=== PATIENT | female | born 1960 | race Caucasian/White ===

== ENCOUNTER 2017-08-30 10:53 | Emergency (ER) | payer SELFPAY ==
--- NOTE | 2017-08-30 11:08 | ER Report ---
History and Physical Time Seen By : 11:08 HPI/ROS CHIEF COMPLAINT: Abdominal pain, bright red blood per rectum HISTORY OF PRESENT ILLNESS: 57-year-old female patient presents to emergency room with complaint of abdominal pain, right red blood per rectum. Patient states she is up visiting from the [facility]. She states that she was camping. She woke up in the middle the night last night with some cramping. States she did get up and go the bathroom. She states that he was normal. She states that she laid back down and had the urge to go the bathroom again. When she went this time she had some diarrhea. She laid back down again and got up several more times since then. States that each time she was having blood in her stool. States the blood was bright red. Patient states she has a generalized abdominal pain, although he seems to worsen the right lower quadrant. She states that she has had no fevers, however she was chilled during the night. REVIEW OF SYSTEMS: Respiratory: No cough, no dyspnea. Cardiovascular: No chest pain, no palpitations. Gastrointestinal: As noted above Musculoskeletal: Mild back pain after hiking. Allergies: Coded Allergies: No Known Drug Allergies (Unverified , 08/30/17) Home Meds Active Scripts Hydrocodone Bit/Acetaminophen (HYDROCODON-ACETAMINOPHEN 5-325) 1 Each Tablet, 1 EACH PO Q6-8H Y for PAIN, #8 TAB Prov:RAZA OBRIEN [facility] 08/30/17 Metronidazole (FLAGYL) 500 Mg Tablet, 500 MG PO TID, #30 TAB Prov:RAZA OBRIEN [facility] 08/30/17 Ciprofloxacin Hcl (CIPROFLOXACIN HCL) 250 Mg Tablet, 250 MG PO DAILY, #14 TAB Prov:RAZA OBRIEN [facility] 08/30/17 Reported Medications Metformin Hcl (METFORMIN HCL) 500 Mg Tablet, 1 TAB PO QHS, TAB 08/30/17 Metformin Hcl (METFORMIN HCL) 1,000 Mg Tablet, 1 TAB PO QAM, TAB 08/30/17 Insulin Glargine (LANTUS) 100 Unit/Ml Soln, 37 UNIT SUBQ QHS, ML 08/30/17 Past Medical/Surgical History Patient has a past medical history of diabetes. Patient denies any pertinent surgical history. Reviewed Nurses Notes: Yes Constitutional Vital Sign - Last 24 Hours 08/30/17 08/30/17 08/30/1718 11:07 11:08 11:30 11:45 Temp 98.5 Pulse 94 Resp 18 B/P (MAP) 170/94 170/94 (119) 167/91 (116) 173/88 (116) Pulse Ox 93 96 O2 Delivery Room Air 08/30/17 08/30/17 08/30/17 08/30/17 12:15 12:30 12:45 12:50 Pulse 85 88 B/P (MAP) 148/72 (97) 139/71 (93) 136/73 (94) Pulse Ox 91 96 08/30/17 08/30/17 08/30/17 13:19 13:20 13:30 Pulse 82 B/P (MAP) 154/81 (105) 153/80 (104) Pulse Ox 95 Intake and Output 08/30/17 08/30/17 08/31/17 15:00 23:00 07:00 Intake Total 1000 ml Balance 1000 ml Physical Exam General Appearance: The patient is alert, has no immediate need for airway protection and no current signs of toxicity. ENT: Tympanic membranes are pearly-tyler, auditory canals are patent, mucous membranes are moist. Respiratory: Chest is non tender, lungs are clear to auscultation. Cardiac: regular rate and rhythm Gastrointestinal: Abdomen is soft and diffusely tender, no masses, bowel sounds are hyperactive. Musculoskeletal: Neck: Neck is supple and non tender. Extremities have full range of motion and are non tender. Skin: No rashes or lesions. DIFFERENTIAL DIAGNOSIS: After history and physical exam differential diagnosis was considered for abdominal pain including but not limited to appendicitis, cholecystitis, gastritis and urinary tract infection. Medical Decision Making Data Points Result Diagram: 08/30/17 1118 08/30/17 1118 Laboratory Hematology Test 08/30/17 11:18 08/30/17 13:17 Red Blood Count 4.21 M/uL (4.17-5.56) Mean Corpuscular Volume 93.1 fL (80.0-96.0) Mean Corpuscular Hemoglobin 31.9 pg (26.0-33.0) Mean Corpuscular Hemoglobin Concent 34.3 g/dL (32.0-36.0) Red Cell Distribution Width 13.7 % (11.5-14.5) Mean Platelet Volume 8.3 fL (7.2-11.1) Neutrophils (%) (Auto) 91.8 % (39.4-72.5) Lymphocytes (%) (Auto) 3.7 % (17.6-49.6) Monocytes (%) (Auto) 4.2 % (4.1-12.4) Eosinophils (%) (Auto) 0.1 % (0.4-6.7) Basophils (%) (Auto) 0.2 % (0.3-1.4) Nucleated RBC Relative Count (auto) 0.0 /100WBC Neutrophils # (Auto) 10.7 K/uL (2.0-7.4) Lymphocytes # (Auto) 0.4 K/uL (1.3-3.6) Monocytes # (Auto) 0.5 K/uL (0.3-1.0) Eosinophils # (Auto) 0.0 K/uL (0.0-0.5) Basophils # (Auto) 0.0 K/uL (0.0-0.1) Nucleated RBC Absolute Count (auto) 0.00 K/uL Sodium Level 136 mmol/L (137-145) Potassium Level 5.8 mmol/L (3.5-5.0) Chloride Level 106 mmol/L (98-107) Carbon Dioxide Level 17 mmol/L (22-31) Blood Urea Nitrogen 40 mg/dl (7-18) Creatinine 1.90 mg/dl (0.52-1.04) Glomerular Filtration Rate Calc 27.2 Random Glucose 268 mg/dl (75-110) Calcium Level 8.9 mg/dl (8.4-10.2) Total Bilirubin 0.6 mg/dl (0.2-1.3) Aspartate Amino Transf (AST/SGOT) 21 U/L (0-35) Alanine Aminotransferase (ALT/SGPT) 21 U/L (0-56) Alkaline Phosphatase 90 U/L (0-126) C-Reactive Protein 1.0 mg/dl (<1.0) Total Protein 7.3 g/dl (6.3-8.2) Albumin 4.4 g/dl (3.5-5.0) Amylase Level 109 U/L (0-110) Lipase 177 U/L (23-300) Urine Color Straw Urine Clarity Clear Urine pH 5.0 pH (4.8-9.5) Urine Specific [place] 1.006 Urine Protein Negative mg/dL (NEGATIVE) Urine Glucose (UA) 150 mg/dL (NEGATIVE) Urine Ketones Negative mg/dL (NEGATIVE) Urine Blood Small (NEGATIVE) Urine Nitrite Negative (NEGATIVE) Urine Bilirubin Negative (NEGATIVE) Urine Urobilinogen Negative mg/dL (0.2-1.9) Urine Leukocyte Esterase Negative (NEGATIVE) Urine RBC None /HPF (0-2/HPF) Urine WBC 1 /HPF (0-5/HPF) Urine Squamous Epithelial Cells Many /LPF (</=FEW) Urine Bacteria Negative /HPF (NONE-FEW) Urine Hyaline Casts Few /LPF (NONE-FEW) Urine Mucus None /HPF (NONE-FEW) Chemistry Test 08/30/17 11:18 08/30/17 13:17 White Blood Count 11.7 k/uL (4.5-11.0) Red Blood Count 4.21 M/uL (4.17-5.56) Hemoglobin 13.4 g/dL (12.0-16.0) Hematocrit 39.2 % (34.0-47.0) Mean Corpuscular Volume 93.1 fL (80.0-96.0) Mean Corpuscular Hemoglobin 31.9 pg (26.0-33.0) Mean Corpuscular Hemoglobin Concent 34.3 g/dL (32.0-36.0) Red Cell Distribution Width 13.7 % (11.5-14.5) Platelet Count 199 K/uL (150-450) Mean Platelet Volume 8.3 fL (7.2-11.1) Neutrophils (%) (Auto) 91.8 % (39.4-72.5) Lymphocytes (%) (Auto) 3.7 % (17.6-49.6) Monocytes (%) (Auto) 4.2 % (4.1-12.4) Eosinophils (%) (Auto) 0.1 % (0.4-6.7) Basophils (%) (Auto) 0.2 % (0.3-1.4) Nucleated RBC Relative Count (auto) 0.0 /100WBC Neutrophils # (Auto) 10.7 K/uL (2.0-7.4) Lymphocytes # (Auto) 0.4 K/uL (1.3-3.6) Monocytes # (Auto) 0.5 K/uL (0.3-1.0) Eosinophils # (Auto) 0.0 K/uL (0.0-0.5) Basophils # (Auto) 0.0 K/uL (0.0-0.1) Nucleated RBC Absolute Count (auto) 0.00 K/uL Glomerular Filtration Rate Calc 27.2 Calcium Level 8.9 mg/dl (8.4-10.2) Total Bilirubin 0.6 mg/dl (0.2-1.3) Aspartate Amino Transf (AST/SGOT) 21 U/L (0-35) Alanine Aminotransferase (ALT/SGPT) 21 U/L (0-56) Alkaline Phosphatase 90 U/L (0-126) C-Reactive Protein 1.0 mg/dl (<1.0) Total Protein 7.3 g/dl (6.3-8.2) Albumin 4.4 g/dl (3.5-5.0) Amylase Level 109 U/L (0-110) Lipase 177 U/L (23-300) Urine Color Straw Urine Clarity Clear Urine pH 5.0 pH (4.8-9.5) Urine Specific [place] 1.006 Urine Protein Negative mg/dL (NEGATIVE) Urine Glucose (UA) 150 mg/dL (NEGATIVE) Urine Ketones Negative mg/dL (NEGATIVE) Urine Blood Small (NEGATIVE) Urine Nitrite Negative (NEGATIVE) Urine Bilirubin Negative (NEGATIVE) Urine Urobilinogen Negative mg/dL (0.2-1.9) Urine Leukocyte Esterase Negative (NEGATIVE) Urine RBC None /HPF (0-2/HPF) Urine WBC 1 /HPF (0-5/HPF) Urine Squamous Epithelial Cells Many /LPF (</=FEW) Urine Bacteria Negative /HPF (NONE-FEW) Urine Hyaline Casts Few /LPF (NONE-FEW) Urine Mucus None /HPF (NONE-FEW) Urinalysis Test 08/30/17 13:17 Urine Color Straw Urine Clarity Clear Urine pH 5.0 pH (4.8-9.5) Urine Specific [place] 1.006 Urine Protein Negative mg/dL (NEGATIVE) Urine Glucose (UA) 150 mg/dL (NEGATIVE) Urine Ketones Negative mg/dL (NEGATIVE) Urine Blood Small (NEGATIVE) Urine Nitrite Negative (NEGATIVE) Urine Bilirubin Negative (NEGATIVE) Urine Urobilinogen Negative mg/dL (0.2-1.9) Urine Leukocyte Esterase Negative (NEGATIVE) Urine RBC None /HPF (0-2/HPF) Urine WBC 1 /HPF (0-5/HPF) Urine Squamous Epithelial Cells Many /LPF (</=FEW) Urine Bacteria Negative /HPF (NONE-FEW) Urine Hyaline Casts Few /LPF (NONE-FEW) Urine Mucus None /HPF (NONE-FEW) EKG/Imaging Imaging EXAMINATION: CT Abdomen and Pelvis Without Contrast 08/30/2017 11:49 AM HISTORY: Abdominal pain TECHNIQUE: Spiral scan was through the abdomen and pelvis without contrast. One of the following dose optimization techniques was utilized in the performance of this exam: Automated exposure control; adjustment of the mA and/ or kV according to the patient's size; or use of an iterative reconstruction technique. Specific details can be referenced in the facility's radiology CT exam operational policy. COMPARISON STUDIES: none. FINDINGS: Liver / biliary: Gallstones in the gallbladder. No biliary dilatation or visible choledocholithiasis. Unenhanced liver is negative. Pancreas: negative Spleen: negative Adrenal glands: negative Kidneys / retroperitoneum: No kidney stone or obstruction. No perinephric stranding. Pelvic structures: Fundal uterine calcifications presumably are leiomyomatous. There are benign-appearing calcifications associated with nonenlarged ovaries on each side. No significant acute finding. Bowel / peritoneum / mesenteries: Thickening of the descending colon with hazing or inflammation in periserosal fat. No focal diverticular change. Appendix is normal. Vessels: Atherosclerosis. Musculoskeletal / Body wall: Degenerative changes in the spine. Sclerosis along both SI joints. Small bone island in the left ischio pubic area. Lymph node assessment: negative Lower chest: 5 mm less micronodules in both bases at least one of which in the right lower lobe appears to be cavitary (series 2, image 11) unless this is thickening along the margins of a dilated peripheral bronchiole. IMPRESSION: 1. Colitis of the descending colon. 2. Bibasilar pulmonary micronodules with a potentially cavitary component. These are nonspecific and may be chronic and postinflammatory although more active infectious or inflammatory processes would be possible. Metastatic disease cannot be excluded. Has the patient had previous cross-sectional imaging of the chest elsewhere? Report Dictated By: Ankur Interiano MD at 08/30/2017 12:15 PM Report E-Signed By: Ankur Interiano MD at 08/30/2017 12:26 PM ED Course/Re-evaluation ED Course Patient was admitted and examined, history and physical were obtained. Differential diagnoses were considered. On examination patient had diffuse abdominal tenderness, doing a rectal exam patient did have some blood. A CBC, CMP, urinalysis, CT scan of the abdomen and pelvis was done. Patient had a white count 11.7, creatinine of 1.9 and a BUN of 40. Patient states she does have a chronic history of chronic renal failure. I believe this likely related to some dehydration. Patient received a liter of normal saline here in the emergency room. A CT scan of the abdomen and pelvis was done which showed colitis of the descending colon. I believe is likely the source of her problems. I believe there is inflammation which causing bleeding which has been causing cramping and diarrhea. I discussed this with the patient. I did talk with Dr. Oliveira, surgeon, who agreed the patient can be discharged home on antibiotics and follow-up with primary care. I discussed the plan with the patient, we will place her on Cipro 250 mg daily, Flagyl 500 mg 3 times a day, hydrocodone for pain. She is to go to emergency room if condition worsens. She is to follow-up with her primary care provider on Friday. Patient and her verbalized understanding and agreement with plan. Decision to Disposition Date: Aug 30, 2017 Decision to Disposition Time: 13:36 Depart Departure Latest Vital Signs Vital Signs Date Time Temp Pulse Resp B/P (MAP) Pulse Ox O2 Delivery O2 Flow Rate FiO2 08/30/17 13:30 153/80 (104) 08/30/17 13:20 82 95 08/30/17 11:07 98.5 18 Room Air Impression: Primary Impression: Colitis Condition: Improved Disposition: HOME OR SELF-CARE New Scripts Hydrocodone Bit/Acetaminophen (HYDROCODON-ACETAMINOPHEN 5-325) 1 Each Tablet 1 EACH PO Q6-8H Y for PAIN, #8 TAB Prov: RAZA OBRIEN 08/30/17 Metronidazole (FLAGYL) 500 Mg Tablet 500 MG PO TID, #30 TAB Prov: RAZA OBRIEN 08/30/17 Ciprofloxacin Hcl (CIPROFLOXACIN HCL) 250 Mg Tablet 250 MG PO DAILY, #14 TAB Prov: RAZA OBRIEN 08/30/17 Patient Instructions: Colitis (ED) Additional Instructions: Increase fluid intake. Get plenty of rest. Follow up with your primary care provider on Friday. Go to the ER if condition worsens. Clear liquid diet for the next 48 hours. Limit activity by pain. RAZA OBRIEN Aug 30, 2017 11:08
[2017-08-30] MEDS ORDERED: NS(*) 0.9% 1000 ML BAG 1,000 ML IV ONE (11:16)
[2017-08-30] MEDS ORDERED: MORPHINE 2 MG/ML SYR IVP ONE (11:20)
[2017-08-30] MEDS ORDERED: LANI SUBQ (11:24)
[2017-08-30] MEDS ORDERED: METF-411 PO (11:24)
[2017-08-30] MEDS ORDERED: METF-421 PO (11:24)
[2017-08-30 11:34] LABS: PLATELET COUNT, AUTOMATED 199 K/uL (150-450)
[2017-08-30] MEDS ORDERED: ONDANSETRON 4 MG/2 ML VIAL IVP ONE (11:35)
--- NOTE | 2017-08-30 12:30 | RADIOLOGY IMAGING REPORT ---
FACILITY: [facility] PATIENT NAME: Romana Garcia : 1960 MR: [id number] V: [id number] EXAM DATE: ORDERING PHYSICIAN: RAZA OBRIEN TECHNOLOGIST: Location: [facility] Patient: Romana Garcia : 1960 Visit/Account:[id number] Date of Sevice: 08/30/2017 EXAMINATION: CT Abdomen and Pelvis Without Contrast 08/30/2017 11:49 AM HISTORY: Abdominal pain TECHNIQUE: Spiral scan was through the abdomen and pelvis without contrast. One of the following dose optimization techniques was utilized in the performance of this exam: Autom ated exposure control; adjustment of the mA and/or kV according to the patient's size; or use of an i terative reconstruction technique. Specific details can be referenced in the facility's radiology C T exam operational policy. COMPARISON STUDIES: none. FINDINGS: Liver / biliary: Gallstones in the gallbladder. No biliary dilatation or visible choledocholithiasis. Unenhanced liver is negative. Pancreas: negative Spleen: negative Adrenal glands: negative Kidneys / retroperitoneum: No kidney stone or obstruction. No perinephric stranding. Pelvic structures: Fundal uterine calcifications presumably are leiomyomatous. There are benign-ap pearing calcifications associated with nonenlarged ovaries on each side. No significant acute finding . Bowel / peritoneum / mesenteries: Thickening of the descending colon with hazing or inflammation in p eriserosal fat. No focal diverticular change. Appendix is normal. Vessels: Atherosclerosis. Musculoskeletal / Body wall: Degenerative changes in the spine. Sclerosis along both SI joints. Small bone island in the left ischio pubic area. Lymph node assessment: negative Lower chest: 5 mm less micronodules in both bases at least one of which in the right lower lobe appea rs to be cavitary (series 2, image 11) unless this is thickening along the margins of a dilated perip heral bronchiole. IMPRESSION: 1. Colitis of the descending colon. 2. Bibasilar pulmonary micronodules with a potentially cavitary component. These are nonspecific and may be chronic and postinflammatory although more active infectious or inflammatory processes would b e possible. Metastatic disease cannot be excluded. Has the patient had previous cross-sectional imagi ng of the chest elsewhere? Report Dictated By: Ankur Interiano MD at 08/30/2017 12:15 PM Report E-Signed By: Ankur Interiano MD at 08/30/2017 12:26 PM WSN:[id number]
[2017-08-30 13:30] VITALS: BP 153/80
[2017-08-30] MEDS ORDERED: METR-1 PO (13:35)
[2017-08-30] MEDS ORDERED: HYDR-385 PO (13:35)
[2017-08-30] MEDS ORDERED: CIPR-215 PO (13:35)
== END 2017-08-30 13:46 | disposition home or self-care (01) ==
LOC: ER 11:10
DX: K52.9 Noninfective gastroenteritis and colitis, unspecified (principal)
CPT/HCPCS: 81001; 82150; 83690; 85025; 86140; 86850; 86900; 86901; 96361; 96374; 96375; 99284; J2270; J2405; J7030; 82040; 82247; 82310; 82374; 82435; 82565; 82947; 84075; 84132; 84155; 84295; 84450; 84460; 84520